=== PATIENT | male | born 1995 | race Caucasian/White ===

== ENCOUNTER 2019-11-23 09:12 | Outpatient (CLI) | payer BC ==
--- NOTE | 2019-11-23 13:36 | ULT ---
ABDOMINAL ULTRASOUND: INDICATION: Epigastric pain. FINDINGS: gallbladder has a normal sonographic appearance. No evidence of gallstones. Common bile duct is normal caliber. Visualized aorta and IVC appear normal. Visualized pancreas appears unremarkable. Visualized liver appears normal. The spleen is homogeneous but is mildly prominent measuring up to 12 cm maximal dimension. Both kidneys are imaged and appear unremarkable. IMPRESSION: 1. Borderline splenomegaly. 2. Abdominal ultrasound otherwise unremarkable. POS: [facility]
== END 2019-11-23 09:13 | disposition home or self-care (01) ==
LOC: SCSULT 09:12
PROVIDERS: ATTEND Internal Medicine
DX: R10.13 Epigastric pain (principal); R53.83 Other fatigue; B27.00 Gammaherpesviral mononucleosis without complication; R16.1 Splenomegaly, not elsewhere classified; Z80.0 Family history of malignant neoplasm of digestive organs
CPT/HCPCS: 93975